=== PATIENT | male | born 1950 | race African-American/Black ===

== ENCOUNTER 2021-04-23 11:00 | Inpatient (IN) | payer OTHER ==
[~2021-04-23] VITALS: Ht 172.7 cm; Wt 84.1 kg
[2021-04-23] MEDS ORDERED: PIPERACILLIN/TAZO 3.375 GM/D5W 50 ML IV ONE (11:23)
[2021-04-23] MEDS ORDERED: MORPHINE SULFATE 4 MG/ML SYRINGE IVP PRN (11:30)
[2021-04-23] MEDS ORDERED: ONDANSETRON HCL 4 MG/2 ML VIAL IVP PRN ×2 (11:30→12:15)
[2021-04-23] MEDS ORDERED: VANCOMYCIN HCL 1 GM/D5% WATER 200 ML IV ONE (11:30)
[2021-04-23 11:40] LABS: COVID AG,FIA SOURCE NASOPHARYNGEAL
[2021-04-23 11:43] LABS: BASOPHILS % (AUTO) 1.7 % (0.0-2.0); EOSINOPHILS % (AUTO) 6.1 % (1.0-6.0); HEMATOCRIT 33.6 % (41-53); HEMOGLOBIN 10.9 g/dL (13.5-17.5); LYMPHOCYTES # (AUTO) 1.4 K/uL (1.0-4.8); LYMPHOCYTES % (AUTO) 27.9 % (22.0-44.0); MEAN CORPUSCULAR HEMOGLOBIN 31.3 pg (26.0-34.0); MEAN CORPUSCULAR HGB CONC 32.5 G/dL (31.0-37.0); MEAN CORPUSCULAR VOLUME 96 fL (80-100); MONOCYTES # (AUTO) 0.8 K/uL (0.1-1.0); MONOCYTES % (AUTO) 14.8 % (2.0-9.0); NEUTROPHILS # (AUTO) 2.5 K/uL (1.8-7.7); NEUTROPHILS % (AUTO) 49.5 % (40.0-70.0); PLATELET COUNT (AUTO) 287 K/uL (150-450); RED BLOOD CELL COUNT(AUTO) 3.49 MIL/uL (4.50-5.90); RED CELL DISTRIBUTION WIDTH 16.2 % (11.5-14.5)
[2021-04-23 11:53] LABS: ANION GAP 7 mmol/L (8-16); CALCIUM, TOTAL 8.8 mg/dL (8.8-10.5); CARBON DIOXIDE 27 mmol/L (22-29); CHLORIDE 105 mmol/L (98-107); CREATININE 1.03 mg/dL (0.60-1.30); GLUCOSE,RANDOM 164 mg/dL (70-110); POTASSIUM 4.1 mmol/L (3.5-5.1); SODIUM SERUM 139 mmol/L (136-145); UREA NITROGEN, BLOOD 9 mg/dL (7-18)
[2021-04-23 11:54] LABS: GLOMERULAR FILTR. RATE CALC > 60 mL/min (>60)
[2021-04-23 11:58] LABS: ALANINE AMINOTRANSFERASE 25 U/L (12-78); ALBUMIN 3.2 g/dL (3.4-5.0); ALKALINE PHOSPHATASE 97 U/L (46-116); ASPARTATE AMINOTRANSFERASE 19 U/L (15-37); BILIRUBIN,TOTAL 0.2 mg/dL (0.1-1.0); C-REACTIVE PROTEIN QUANT 0.78 mg/dL (0.00-0.30); TOTAL PROTEIN, SERUM 7.7 g/dL (6.4-8.2)
[2021-04-23] MEDS ORDERED: PROPOFOL 1% 20 ML VIAL IVP ONE (12:00)
[2021-04-23] MEDS ORDERED: MIDAZOLAM HCL 2 MG/2 ML VIAL IVP ONE (12:00)
[2021-04-23] MEDS ORDERED: METOPROLOL TARTRATE 5 MG/5 ML VIAL IVP ONE (12:00)
[2021-04-23] MEDS ORDERED: FentaNYL CITRATE PF 100 MCG/2 ML VIAL IVP ONE (12:00)
[2021-04-23 12:02] LABS: LACTIC ACID 1.5 mmol/L (0.4-2.0)
[2021-04-23] MEDS ORDERED: BISACODYL 10 MG RECTAL RECTAL SUPPOSITORY PR PRN (12:15)
[2021-04-23] MEDS ORDERED: ACETAMINOPHEN 325 MG TABLET PO PRN (12:15)
[2021-04-23] MEDS ORDERED: ALBUTEROL SULFATE 2.5 MG/0.5 ML NEB SOLUTION NEB PRN (12:15)
[2021-04-23] MEDS ORDERED: DOCUSATE SODIUM 100 MG CAPSULE PO PRN (12:15)
[2021-04-23] MEDS ORDERED: IPRATROPIUM BROMIDE 0.5 MG/2.5 ML NEB SOLUTION NEB PRN (12:15)
[2021-04-23] MEDS ORDERED: 0.9% SODIUM CHLORIDE 10 ML SYRINGE IVP PRN (12:15)
[2021-04-23] MEDS ORDERED: MAGNESIUM HYDROXIDE SUSPENSION 30 ML UDCUP PO PRN (12:15)
[2021-04-23 12:20] LABS: APPEARANCE,URINE CLEAR (CLEAR); BILIRUBIN,URINE NEGATIVE (NEGATIVE); GLUCOSE, URINE (UA) NEGATIVE (NEGATIVE); KETONES,URINE NEGATIVE (NEGATIVE); LEUKOCYTE ESTERASE ,URINE NEGATIVE (NEGATIVE); NITRATE,URINE NEGATIVE (NEGATIVE); OCCULT BLOOD,URINE NEGATIVE (NEGATIVE); PH,URINE 6.5 (5.0-8.0); PROTEIN,URINE NEGATIVE (NEGATIVE); UROBILINOGEN,URINE 0.2 mg/dL (<=1.0)
[2021-04-23 12:22] LABS: BACTERIA,URINE None Seen /HPF (None Seen); RBC,URINE None Seen /HPF (0-2); WBC,URINE None Seen /HPF (0-5)
[2021-04-23] MEDS ORDERED: POVIDONE-IODINE 10% 15 ML SOLUTION UD ONE (12:26)
[2021-04-23] MEDS ORDERED: TraMADol HCL 50 MG TABLET PO PRN (12:30)
[2021-04-23] MEDS ORDERED: HydrALAZINE HCL 20 MG/ML VIAL IVP PRN (12:30)
[2021-04-23] MEDS ORDERED: DEXTROSE 50%-WATER 25 GM/50 ML SYRINGE IVP PRN (12:30)
[2021-04-23 12:53] LABS: ERYTHROCYTE SEDIMENTATION RATE 58 MM/HR (0-15)
[2021-04-23] MEDS: PANTOPRAZOLE SODIUM 40 MG DR TABLET PO SCH (14:38)
[2021-04-23] MEDS: MORPHINE SULFATE 2 MG/ML SYRINGE IVP PRN ×2 (15:13→21:31)
[2021-04-23] MEDS: HEPARIN SODIUM,PORCINE 5,000 UNITS/ML VIAL SQ SCH (15:16)
[2021-04-23 15:22] VITALS: BP 138/69
[2021-04-23] MEDS ORDERED: RINGERS SOLUTION,LACTATED 1,000 ML IV ONE (15:43)
[2021-04-23] MEDS ORDERED: LIDOCAINE/PF 1% 30 ML VIAL ONE (15:53)
[2021-04-23] MEDS ORDERED: SODIUM CL IRRIG SOLN BAG 3,000 ML IRRIG ONE (15:53)
[2021-04-23] MEDS ORDERED: BUPIVACAINE HCL/PF 0.25% 30 ML VIAL ONE (15:53)
[2021-04-23] MEDS ORDERED: SODIUM CHLORIDE 0.9% 250 ML IV ONE (16:15)
[2021-04-23] MEDS ORDERED: HYDROmorphone 2 MG/ML VIAL IVP PRN (16:30)
[2021-04-23] MEDS ORDERED: FentaNYL CITRATE PF 100 MCG/2 ML VIAL IVP PRN (16:30)
[2021-04-23] MEDS: PIPERACILLIN/TAZO 3.375 GM/D5W 50 ML IV SCH (17:51)
[2021-04-23 19:45] VITALS: BP 133/72
[2021-04-23] MEDS: VANCOMYCIN HCL 750 MG in DEXTROSE 5%-WATER 250 ML IV SCH (19:58)
[2021-04-23] MEDS: OXYGEN THERAPY IH SCH (20:00)
[2021-04-23 20:26] LABS: GLUCOMETER DEV NAME(LOC) 6S.1; GLUCOSE,POINT OF CARE 121 MG/DL (70-110)
[2021-04-23 22:28] LABS: GLUCOMETER DEV NAME(LOC) 6N.1; GLUCOSE,POINT OF CARE 172 MG/DL (70-110)
[2021-04-24] MEDS: PIPERACILLIN/TAZO 3.375 GM/D5W 50 ML IV SCH ×5 (00:08→23:49)
[2021-04-24] MEDS: HEPARIN SODIUM,PORCINE 5,000 UNITS/ML VIAL SQ SCH ×4 (00:10→23:49)
[2021-04-24] MEDS ORDERED: MORPHINE SULFATE 2 MG/ML SYRINGE IVP PRN ×2 (00:15→12:15)
[2021-04-24 00:23] VITALS: BP 148/65
[2021-04-24] MEDS: MORPHINE SULFATE 4 MG/ML SYRINGE IVP PRN ×3 (00:23→08:32)
[2021-04-24 03:40] VITALS: BP 153/82
[2021-04-24 07:07] LABS: BASOPHILS % (AUTO) 0.5 % (0.0-2.0); EOSINOPHILS % (AUTO) 5.7 % (1.0-6.0); HEMATOCRIT 36.9 % (41-53); LYMPHOCYTES # (AUTO) 1.6 K/uL (1.0-4.8); LYMPHOCYTES % (AUTO) 21.9 % (22.0-44.0); MEAN CORPUSCULAR HEMOGLOBIN 31.2 pg (26.0-34.0); MEAN CORPUSCULAR HGB CONC 32.4 G/dL (31.0-37.0); MEAN CORPUSCULAR VOLUME 96 fL (80-100); MONOCYTES # (AUTO) 0.8 K/uL (0.1-1.0); MONOCYTES % (AUTO) 10.5 % (2.0-9.0); NEUTROPHILS # (AUTO) 4.5 K/uL (1.8-7.7); NEUTROPHILS % (AUTO) 61.4 % (40.0-70.0); PLATELET COUNT (AUTO) 310 K/uL (150-450); RED BLOOD CELL COUNT(AUTO) 3.83 MIL/uL (4.50-5.90); RED CELL DISTRIBUTION WIDTH 16.4 % (11.5-14.5)
[2021-04-24 07:34] LABS: ALANINE AMINOTRANSFERASE 27 U/L (12-78); ALBUMIN 3.4 g/dL (3.4-5.0); ALKALINE PHOSPHATASE 96 U/L (46-116); ANION GAP 7 mmol/L (8-16); ASPARTATE AMINOTRANSFERASE 22 U/L (15-37); BILIRUBIN,TOTAL 0.4 mg/dL (0.1-1.0); CALCIUM, TOTAL 9.4 mg/dL (8.8-10.5); CARBON DIOXIDE 29 mmol/L (22-29); CHLORIDE 103 mmol/L (98-107); CHOL/HDL RATIO 2.8 (4.2-7.3); CHOLESTEROL 91 mg/dL (131-200); CREATININE 1.12 mg/dL (0.60-1.30); GLOMERULAR FILTR. RATE CALC > 60 mL/min (>60); GLUCOSE,RANDOM 138 mg/dL (70-110); HDL CHOLESTEROL 32 mg/dL (40-60); LDL CHOL (CALC.) 38 mg/dL (0-130); POTASSIUM 4.2 mmol/L (3.5-5.1); SODIUM SERUM 139 mmol/L (136-145); TOTAL PROTEIN, SERUM 8.2 g/dL (6.4-8.2); TRIGLYCERIDES 104 mg/dL (15-150); UREA NITROGEN, BLOOD 8 mg/dL (7-18)
[2021-04-24] MEDS: OXYGEN THERAPY IH SCH ×2 (08:00→20:00)
[2021-04-24 08:12] VITALS: BP 155/80
[2021-04-24] MEDS: PANTOPRAZOLE SODIUM 40 MG DR TABLET PO SCH (08:34)
[2021-04-24] MEDS: VANCOMYCIN HCL 750 MG in DEXTROSE 5%-WATER 250 ML IV SCH ×2 (08:35→20:43)
[2021-04-24 12:03] LABS: GLUCOMETER DEV NAME(LOC) 6N.1; GLUCOSE,POINT OF CARE 134 MG/DL (70-110)
[2021-04-24 12:03] LABS: GLUCOMETER DEV NAME(LOC) 6N.1; GLUCOSE,POINT OF CARE 167 MG/DL (70-110)
[2021-04-24] MEDS: HYDROCODONE/ACETAMINOPHEN 10-325 MG TABLET PO PRN ×2 (14:21→20:53)
[2021-04-24 15:46] VITALS: BP 149/69
[2021-04-24 17:54] LABS: GLUCOMETER DEV NAME(LOC) 6S.1; GLUCOSE,POINT OF CARE 141 MG/DL (70-110)
[2021-04-24 19:47] VITALS: BP 156/76
[2021-04-24 22:16] LABS: GLUCOMETER DEV NAME(LOC) 6S.1; GLUCOSE,POINT OF CARE 157 MG/DL (70-110)
[2021-04-24] MEDS ORDERED: SODIUM CHLORIDE 0.9% 250 ML IV ONE (23:41)
[2021-04-25 03:48] VITALS: BP 120/73
[2021-04-25] MEDS: PIPERACILLIN/TAZO 3.375 GM/D5W 50 ML IV SCH ×4 (05:28→23:25)
[2021-04-25] MEDS: HYDROCODONE/ACETAMINOPHEN 10-325 MG TABLET PO PRN ×3 (05:28→19:53)
[2021-04-25 06:26] LABS: GLUCOMETER DEV NAME(LOC) 6N.1; GLUCOSE,POINT OF CARE 154 MG/DL (70-110)
[2021-04-25 07:55] LABS: ANION GAP 9 mmol/L (8-16); CALCIUM, TOTAL 9.1 mg/dL (8.8-10.5); CARBON DIOXIDE 28 mmol/L (22-29); CHLORIDE 101 mmol/L (98-107); CREATININE 1.15 mg/dL (0.60-1.30); GLUCOSE,RANDOM 150 mg/dL (70-110); POTASSIUM 3.7 mmol/L (3.5-5.1); SODIUM SERUM 138 mmol/L (136-145); UREA NITROGEN, BLOOD 12 mg/dL (7-18); VANCOMYCIN,RANDOM 10.3 mcg/mL (25.0-50.0)
[2021-04-25 07:56] LABS: GLOMERULAR FILTR. RATE CALC > 60 mL/min (>60)
[2021-04-25] MEDS: OXYGEN THERAPY IH SCH ×2 (08:00→19:56)
[2021-04-25 08:05] VITALS: BP 132/70
[2021-04-25] MEDS: HEPARIN SODIUM,PORCINE 5,000 UNITS/ML VIAL SQ SCH ×3 (08:26→23:25)
[2021-04-25] MEDS: VANCOMYCIN HCL 750 MG in DEXTROSE 5%-WATER 250 ML IV SCH (08:27)
[2021-04-25] MEDS: PANTOPRAZOLE SODIUM 40 MG DR TABLET PO SCH (08:27)
[2021-04-25] MEDS: INSULIN LISPRO 100 UNITS/ML SQ PRN ×2 (11:16→17:05)
[2021-04-25 15:51] LABS: GLUCOMETER DEV NAME(LOC) 6S.1; GLUCOSE,POINT OF CARE 145 MG/DL (70-110)
[2021-04-25 15:58] VITALS: BP 137/68
[2021-04-25 18:34] LABS: GLUCOMETER DEV NAME(LOC) 6N.1; GLUCOSE,POINT OF CARE 147 MG/DL (70-110)
[2021-04-25] MEDS: VANCOMYCIN HCL 1 GM/D5% WATER 200 ML IV SCH (19:53)
[2021-04-25 20:05] VITALS: BP 133/54
[2021-04-25 21:04] LABS: GLUCOMETER DEV NAME(LOC) 6S.1; GLUCOSE,POINT OF CARE 136 MG/DL (70-110)
[2021-04-26] MEDS: HYDROCODONE/ACETAMINOPHEN 10-325 MG TABLET PO PRN ×3 (02:24→14:37)
[2021-04-26 04:15] VITALS: BP 117/54
[2021-04-26] MEDS: PIPERACILLIN/TAZO 3.375 GM/D5W 50 ML IV SCH ×2 (06:12→12:25)
[2021-04-26 07:07] LABS: ANION GAP 8 mmol/L (8-16); CALCIUM, TOTAL 8.9 mg/dL (8.8-10.5); CARBON DIOXIDE 28 mmol/L (22-29); CHLORIDE 102 mmol/L (98-107); CREATININE 1.13 mg/dL (0.60-1.30); GLUCOSE,RANDOM 134 mg/dL (70-110); POTASSIUM 3.8 mmol/L (3.5-5.1); SODIUM SERUM 138 mmol/L (136-145); UREA NITROGEN, BLOOD 10 mg/dL (7-18)
[2021-04-26 07:11] LABS: GLOMERULAR FILTR. RATE CALC > 60 mL/min (>60)
[2021-04-26 07:36] LABS: GLUCOMETER DEV NAME(LOC) 6S.1; GLUCOSE,POINT OF CARE 155 MG/DL (70-110)
[2021-04-26 07:59] VITALS: BP 124/63
[2021-04-26] MEDS: OXYGEN THERAPY IH SCH (08:00)
[2021-04-26] MEDS: VANCOMYCIN HCL 1 GM/D5% WATER 200 ML IV SCH (08:11)
[2021-04-26] MEDS: PANTOPRAZOLE SODIUM 40 MG DR TABLET PO SCH (08:11)
[2021-04-26] MEDS: HEPARIN SODIUM,PORCINE 5,000 UNITS/ML VIAL SQ SCH (08:12)
[2021-04-26] MEDS ORDERED: SODIUM CHLORIDE 0.9% 500 ML IV ONE (08:37)
[2021-04-26] MEDS: INSULIN LISPRO 100 UNITS/ML SQ PRN (12:25)
[2021-04-26 14:04] LABS: GLUCOMETER DEV NAME(LOC) 6S.1; GLUCOSE,POINT OF CARE 139 MG/DL (70-110)
[2021-04-26] MEDS ORDERED: CEPH500C3 PO (15:49)
[2021-04-26 16:14] VITALS: BP 140/74
== END 2021-04-26 17:10 | disposition home health service (06) | DRG 256 ==
LOC: EMS 11:07 → 6N 13:08
PROVIDERS: ADMIT Internal Medicine; ATTEND Internal Medicine
PROC: 0Y6Q0Z1 Detachment at Left 1st Toe, High, Open Approach (ICD-10-PCS; principal; 2021-04-25)
PROC: 0QBR0ZX Excision of Left Toe Phalanx, Open Approach, Diagnostic (ICD-10-PCS; 2021-04-25)
DX: E11.52 Type 2 diabetes mellitus with diabetic peripheral angiopathy with gangrene (principal); M86.8X7 Other osteomyelitis, ankle and foot; I11.9 Hypertensive heart disease without heart failure; D63.8 Anemia in other chronic diseases classified elsewhere; E78.5 Hyperlipidemia, unspecified; J43.9 Emphysema, unspecified; E11.69 Type 2 diabetes mellitus with other specified complication; J45.909 Unspecified asthma, uncomplicated; Z87.891 Personal history of nicotine dependence; Z88.2 Allergy status to sulfonamides
CPT/HCPCS: 71045; 80048; 80053; 80061; 80202; 81001; 82962; 83605; 84145; 84484; 85025; 85651; 86140; 87040; 87070; 87077; 87205; 88305; 88307; 88311; 93005; 97162; 99285; J1644; J2250; J2270; J2405; J2543; J2704; J3010; J3370; J3490; J7040; J7050; J7060; J7120; 36415-L1; 36415-TC; Z7610

== ENCOUNTER 2021-08-06 07:24 | Inpatient (IN) | payer OTHER ==
[~2021-08-06] VITALS: Ht 172.7 cm; Wt 87.3 kg
[~2021-08-06 07:24] MED LIST: CEPH500C3 PO
[2021-08-06] MEDS ORDERED: MONT-35 PO (07:31)
[2021-08-06] MEDS ORDERED: HYDR25TA2 PO (07:31)
[2021-08-06] MEDS ORDERED: FLUT1BLS8 IH (07:31)
[2021-08-06] MEDS ORDERED: ATOR40TA28 PO (07:31)
[2021-08-06] MEDS ORDERED: OMEP20 PO (07:31)
[2021-08-06] MEDS ORDERED: SILD25 PO (07:31)
[2021-08-06] MEDS ORDERED: LOSA-382 PO (07:31)
[2021-08-06] MEDS ORDERED: CAPS60CR3 TP (07:31)
[2021-08-06] MEDS ORDERED: ASPI-1450 PO (07:31)
[2021-08-06] MEDS ORDERED: FERR-89 PO (07:31)
[2021-08-06] MEDS ORDERED: INSLAN SQ (07:31)
[2021-08-06] MEDS ORDERED: GABA-1201 PO (07:31)
[2021-08-06 08:42] LABS: ANION GAP 10 mmol/L (8-16); CALCIUM, TOTAL 9.2 mg/dL (8.8-10.5); CARBON DIOXIDE 24 mmol/L (22-29); CHLORIDE 104 mmol/L (98-107); CREATININE 1.11 mg/dL (0.60-1.30); GLUCOSE,RANDOM 166 mg/dL (70-110); POTASSIUM 3.5 mmol/L (3.5-5.1); SODIUM SERUM 138 mmol/L (136-145); UREA NITROGEN, BLOOD 11 mg/dL (7-18)
[2021-08-06 08:45] LABS: EOSINOPHILS % (AUTO) 5.7 % (1.0-6.0); HEMATOCRIT 41.3 % (41-53); LYMPHOCYTES # (AUTO) 1.7 K/uL (1.0-4.8); LYMPHOCYTES % (AUTO) 23.6 % (22.0-44.0); MEAN CORPUSCULAR HEMOGLOBIN 31.6 pg (26.0-34.0); MEAN CORPUSCULAR VOLUME 93 fL (80-100); MONOCYTES # (AUTO) 0.6 K/uL (0.1-1.0); NEUTROPHILS # (AUTO) 4.4 K/uL (1.8-7.7); NEUTROPHILS % (AUTO) 61.7 % (40.0-70.0); PLATELET COUNT (AUTO) 234 K/uL (150-450); RED BLOOD CELL COUNT(AUTO) 4.44 MIL/uL (4.50-5.90); RED CELL DISTRIBUTION WIDTH 14.8 % (11.5-14.5)
[2021-08-06 08:48] LABS: ALANINE AMINOTRANSFERASE 24 U/L (12-78); ALBUMIN 3.4 g/dL (3.4-5.0); ALKALINE PHOSPHATASE 107 U/L (46-116); ASPARTATE AMINOTRANSFERASE 13 U/L (15-37); BILIRUBIN,TOTAL 0.2 mg/dL (0.1-1.0); C-REACTIVE PROTEIN QUANT 4.51 mg/dL (0.00-0.30); TOTAL PROTEIN, SERUM 8.1 g/dL (6.4-8.2)
[2021-08-06 09:02] LABS: GLOMERULAR FILTR. RATE CALC > 60 mL/min (>60)
[2021-08-06 09:06] LABS: PROTHROMBIN TIME 10.9 SEC (9.4-11.6)
[2021-08-06] MEDS ORDERED: RINGERS SOLUTION,LACTATED 1,000 ML IV ONE ×2 (09:45→10:10)
[2021-08-06] MEDS ORDERED: GADOTERATE MEGLUMINE 10 MMOL/20 ML VIAL IVP ONE (10:06)
[2021-08-06 10:27] LABS: ERYTHROCYTE SEDIMENTATION RATE 26 MM/HR (0-15)
[2021-08-06 12:28] LABS: COVID AG,FIA SOURCE NASAL SWAB
[2021-08-06 12:39] LABS: INR 1.1 (0.9-1.1); PROTHROMBIN TIME 11.8 SEC (9.4-11.6)
[2021-08-06] MEDS ORDERED: ONDANSETRON HCL 4 MG/2 ML VIAL IVP PRN (13:15)
[2021-08-06] MEDS ORDERED: MAGNESIUM HYDROXIDE SUSPENSION 30 ML UDCUP PO PRN (13:15)
[2021-08-06] MEDS ORDERED: ZOLPIDEM TARTRATE 5 MG TABLET PO PRN (13:15)
[2021-08-06] MEDS ORDERED: BISACODYL 10 MG RECTAL RECTAL SUPPOSITORY PR PRN (13:15)
[2021-08-06] MEDS ORDERED: VANCOMYCIN HCL 1.5 GM in DEXTROSE 5%-WATER 250 ML IV ONE (13:30)
[2021-08-06] MEDS ORDERED: SILDENAFIL CITRATE 25 MG TABLET PO SCH (13:30)
[2021-08-06] MEDS ORDERED: DEXTROSE 50%-WATER 25 GM/50 ML SYRINGE IVP PRN (13:30)
[2021-08-06] MEDS: HEPARIN SODIUM,PORCINE 5,000 UNITS/ML VIAL SQ SCH ×2 (15:10→23:29)
[2021-08-06] MEDS: GABAPENTIN 400 MG CAPSULE PO SCH ×2 (16:16→20:25)
[2021-08-06] MEDS: FERROUS SULFATE 325 MG EC TABLET PO SCH (17:04)
[2021-08-06 20:00] VITALS: BP 149/85
[2021-08-06] MEDS: MONTELUKAST SODIUM 10 MG TABLET PO SCH (20:25)
[2021-08-06] MEDS: DOCUSATE SODIUM 100 MG CAPSULE PO SCH (20:25)
[2021-08-06] MEDS: VANCOMYCIN HCL 1 GM/D5% WATER 200 ML IV SCH (20:25)
[2021-08-06] MEDS: ATORVASTATIN CALCIUM 40 MG TABLET PO SCH (20:25)
[2021-08-06] MEDS: INSULIN GLARGINE,HUM.REC.ANLOG 100 UNITS/ML SQ SCH (21:00)
[2021-08-07 05:12] VITALS: BP 149/90
[2021-08-07] MEDS ORDERED: RINGERS SOLUTION,LACTATED 1,000 ML IV ONE ×3 (05:26→06:45)
[2021-08-07 06:43] LABS: BASOPHILS % (AUTO) 0.8 % (0.0-2.0); EOSINOPHILS % (AUTO) 6.7 % (1.0-6.0); HEMOGLOBIN 15.7 g/dL (13.5-17.5); LYMPHOCYTES # (AUTO) 2.7 K/uL (1.0-4.8); LYMPHOCYTES % (AUTO) 36.6 % (22.0-44.0); MEAN CORPUSCULAR HEMOGLOBIN 31.6 pg (26.0-34.0); MEAN CORPUSCULAR HGB CONC 34.1 G/dL (31.0-37.0); MEAN CORPUSCULAR VOLUME 93 fL (80-100); MONOCYTES # (AUTO) 0.7 K/uL (0.1-1.0); NEUTROPHILS # (AUTO) 3.3 K/uL (1.8-7.7); NEUTROPHILS % (AUTO) 45.9 % (40.0-70.0); PLATELET COUNT (AUTO) 261 K/uL (150-450); RED BLOOD CELL COUNT(AUTO) 4.96 MIL/uL (4.50-5.90); RED CELL DISTRIBUTION WIDTH 15.5 % (11.5-14.5)
[2021-08-07 06:52] LABS: ANION GAP 8 mmol/L (8-16); CALCIUM, TOTAL 9.8 mg/dL (8.8-10.5); CARBON DIOXIDE 29 mmol/L (22-29); CHLORIDE 103 mmol/L (98-107); CREATININE 1.15 mg/dL (0.60-1.30); GLUCOSE,RANDOM 173 mg/dL (70-110); POTASSIUM 4.6 mmol/L (3.5-5.1); SODIUM SERUM 140 mmol/L (136-145); UREA NITROGEN, BLOOD 9 mg/dL (7-18)
[2021-08-07 06:57] LABS: GLOMERULAR FILTR. RATE CALC > 60 mL/min (>60)
[2021-08-07] MEDS ORDERED: BUPIVACAINE HCL/PF 0.25% 30 ML VIAL ONE (06:59)
[2021-08-07] MEDS ORDERED: VANCOMYCIN HCL 500 MG/VIAL ONE (06:59)
[2021-08-07] MEDS ORDERED: LIDOCAINE 1%/EPI 1:200,000/PF 30 ML VIAL ONE (06:59)
[2021-08-07] MEDS: HEPARIN SODIUM,PORCINE 5,000 UNITS/ML VIAL SQ SCH ×3 (08:00→23:37)
[2021-08-07] MEDS ORDERED: PANTOPRAZOLE SODIUM 40 MG DR TABLET PO SCH (09:00)
[2021-08-07 09:46] VITALS: BP 148/81
[2021-08-07] MEDS: ASPIRIN 81 MG CHEWABLE TABLET PO SCH (10:48)
[2021-08-07] MEDS: OMEPRAZOLE 20 MG CAPSULE PO SCH (10:48)
[2021-08-07] MEDS: HYDROCHLOROTHIAZIDE 25 MG TABLET PO SCH (10:48)
[2021-08-07] MEDS: FERROUS SULFATE 325 MG EC TABLET PO SCH ×2 (10:49→18:15)
[2021-08-07] MEDS: LOSARTAN POTASSIUM 50 MG TABLET PO SCH (10:49)
[2021-08-07] MEDS: GABAPENTIN 400 MG CAPSULE PO SCH ×3 (10:49→20:08)
[2021-08-07] MEDS: DOCUSATE SODIUM 100 MG CAPSULE PO SCH ×2 (10:49→20:08)
[2021-08-07] MEDS: VANCOMYCIN HCL 1 GM/D5% WATER 200 ML IV SCH ×2 (10:53→19:55)
[2021-08-07] MEDS ORDERED: PROPOFOL 1% 20 ML VIAL IVP ONE (12:00)
[2021-08-07] MEDS ORDERED: MIDAZOLAM HCL 2 MG/2 ML VIAL IVP ONE (12:00)
[2021-08-07] MEDS ORDERED: FentaNYL CITRATE PF 100 MCG/2 ML VIAL IVP ONE (12:00)
[2021-08-07] MEDS ORDERED: ESMOLOL HCL 10 MG/ML 10 ML VIAL IVP ONE (12:00)
[2021-08-07] MEDS ORDERED: LIDOCAINE/PF 2% 5 ML SYRINGE IVP ONE (12:00)
[2021-08-07 15:26] VITALS: BP 141/64
[2021-08-07] MEDS: MORPHINE SULFATE 2 MG/ML SYRINGE IVP PRN ×2 (16:10→20:08)
[2021-08-07] MEDS: HYDROCODONE/ACETAMINOPHEN 5-325 MG TABLET PO PRN ×2 (18:19→23:37)
[2021-08-07] MEDS: MONTELUKAST SODIUM 10 MG TABLET PO SCH (20:08)
[2021-08-07] MEDS: ATORVASTATIN CALCIUM 40 MG TABLET PO SCH (20:08)
[2021-08-07] MEDS: INSULIN GLARGINE,HUM.REC.ANLOG 100 UNITS/ML SQ SCH (20:09)
[2021-08-07 20:46] VITALS: BP 144/67
[2021-08-08] MEDS: MORPHINE SULFATE 2 MG/ML SYRINGE IVP PRN ×2 (01:23→06:52)
[2021-08-08 05:24] VITALS: BP 138/73
[2021-08-08 08:23] VITALS: BP 147/81
[2021-08-08] MEDS: LOSARTAN POTASSIUM 50 MG TABLET PO SCH (08:53)
[2021-08-08] MEDS: GABAPENTIN 400 MG CAPSULE PO SCH ×3 (08:53→19:59)
[2021-08-08] MEDS: OMEPRAZOLE 20 MG CAPSULE PO SCH (08:53)
[2021-08-08] MEDS: HYDROCHLOROTHIAZIDE 25 MG TABLET PO SCH (08:53)
[2021-08-08] MEDS: ASPIRIN 81 MG CHEWABLE TABLET PO SCH (08:53)
[2021-08-08] MEDS: DOCUSATE SODIUM 100 MG CAPSULE PO SCH ×2 (08:53→19:59)
[2021-08-08] MEDS: HEPARIN SODIUM,PORCINE 5,000 UNITS/ML VIAL SQ SCH ×3 (08:54→23:20)
[2021-08-08] MEDS: FERROUS SULFATE 325 MG EC TABLET PO SCH ×2 (08:54→17:24)
[2021-08-08] MEDS: VANCOMYCIN HCL 1 GM/D5% WATER 200 ML IV SCH (08:55)
[2021-08-08 09:01] LABS: BASOPHILS % (AUTO) 0.8 % (0.0-2.0); EOSINOPHILS % (AUTO) 5.8 % (1.0-6.0); HEMATOCRIT 41.8 % (41-53); HEMOGLOBIN 14.3 g/dL (13.5-17.5); LYMPHOCYTES # (AUTO) 1.8 K/uL (1.0-4.8); LYMPHOCYTES % (AUTO) 27.8 % (22.0-44.0); MEAN CORPUSCULAR HEMOGLOBIN 31.4 pg (26.0-34.0); MEAN CORPUSCULAR HGB CONC 34.1 G/dL (31.0-37.0); MEAN CORPUSCULAR VOLUME 92 fL (80-100); MONOCYTES # (AUTO) 0.7 K/uL (0.1-1.0); MONOCYTES % (AUTO) 11.3 % (2.0-9.0); NEUTROPHILS # (AUTO) 3.6 K/uL (1.8-7.7); NEUTROPHILS % (AUTO) 54.3 % (40.0-70.0); PLATELET COUNT (AUTO) 215 K/uL (150-450); RED BLOOD CELL COUNT(AUTO) 4.54 MIL/uL (4.50-5.90); RED CELL DISTRIBUTION WIDTH 14.8 % (11.5-14.5)
[2021-08-08 09:27] LABS: ANION GAP 5 mmol/L (8-16); CALCIUM, TOTAL 9.5 mg/dL (8.8-10.5); CARBON DIOXIDE 30 mmol/L (22-29); CHLORIDE 102 mmol/L (98-107); CREATININE 1.06 mg/dL (0.60-1.30); GLUCOSE,RANDOM 131 mg/dL (70-110); POTASSIUM 4.5 mmol/L (3.5-5.1); SODIUM SERUM 137 mmol/L (136-145); UREA NITROGEN, BLOOD 9 mg/dL (7-18); VANCOMYCIN,RANDOM 13.5 mcg/mL (25.0-50.0)
[2021-08-08 09:33] LABS: GLOMERULAR FILTR. RATE CALC > 60 mL/min (>60)
[2021-08-08] MEDS: CefTRIAXone SODIUM 2 GM in DEXTROSE 5%-WATER 50 ML IV SCH (11:14)
[2021-08-08] MEDS: HYDROCODONE/ACETAMINOPHEN 5-325 MG TABLET PO PRN ×2 (11:14→20:00)
[2021-08-08] MEDS: INSULIN LISPRO 100 UNITS/ML SQ PRN ×3 (11:54→20:14)
[2021-08-08 16:54] VITALS: BP 101/63
[2021-08-08 19:55] VITALS: BP 117/67
[2021-08-08] MEDS: ATORVASTATIN CALCIUM 40 MG TABLET PO SCH (19:59)
[2021-08-08] MEDS: VANCOMYCIN HCL 1.25 GM in DEXTROSE 5%-WATER 250 ML IV SCH (20:05)
[2021-08-08] MEDS: INSULIN GLARGINE,HUM.REC.ANLOG 100 UNITS/ML SQ SCH (20:14)
[2021-08-08] MEDS: MONTELUKAST SODIUM 10 MG TABLET PO SCH (23:20)
[2021-08-09 05:15] VITALS: BP 109/65
[2021-08-09] MEDS: HYDROCODONE/ACETAMINOPHEN 5-325 MG TABLET PO PRN ×3 (05:32→23:21)
[2021-08-09 06:45] LABS: EOSINOPHILS % (AUTO) 6.6 % (1.0-6.0); HEMATOCRIT 41.5 % (41-53); HEMOGLOBIN 14.5 g/dL (13.5-17.5); LYMPHOCYTES # (AUTO) 2.1 K/uL (1.0-4.8); LYMPHOCYTES % (AUTO) 34.1 % (22.0-44.0); MEAN CORPUSCULAR HEMOGLOBIN 32.1 pg (26.0-34.0); MEAN CORPUSCULAR HGB CONC 35.1 G/dL (31.0-37.0); MEAN CORPUSCULAR VOLUME 92 fL (80-100); MONOCYTES # (AUTO) 0.8 K/uL (0.1-1.0); MONOCYTES % (AUTO) 12.7 % (2.0-9.0); NEUTROPHILS # (AUTO) 2.8 K/uL (1.8-7.7); NEUTROPHILS % (AUTO) 45.6 % (40.0-70.0); PLATELET COUNT (AUTO) 252 K/uL (150-450); RED BLOOD CELL COUNT(AUTO) 4.53 MIL/uL (4.50-5.90); RED CELL DISTRIBUTION WIDTH 14.7 % (11.5-14.5)
[2021-08-09 07:01] LABS: ANION GAP 7 mmol/L (8-16); CALCIUM, TOTAL 9.7 mg/dL (8.8-10.5); CARBON DIOXIDE 30 mmol/L (22-29); CHLORIDE 97 mmol/L (98-107); CREATININE 1.18 mg/dL (0.60-1.30); GLUCOSE,RANDOM 176 mg/dL (70-110); SODIUM SERUM 134 mmol/L (136-145); UREA NITROGEN, BLOOD 14 mg/dL (7-18)
[2021-08-09 07:02] LABS: GLOMERULAR FILTR. RATE CALC > 60 mL/min (>60)
[2021-08-09] MEDS ORDERED: SODIUM CHLORIDE 0.9% 250 ML IV ONE (07:53)
[2021-08-09] MEDS: VANCOMYCIN HCL 1.25 GM in DEXTROSE 5%-WATER 250 ML IV SCH ×2 (08:01→20:12)
[2021-08-09] MEDS: HEPARIN SODIUM,PORCINE 5,000 UNITS/ML VIAL SQ SCH ×3 (08:01→23:18)
[2021-08-09] MEDS: GABAPENTIN 400 MG CAPSULE PO SCH ×3 (08:02→20:20)
[2021-08-09] MEDS: ASPIRIN 81 MG CHEWABLE TABLET PO SCH (08:02)
[2021-08-09] MEDS: OMEPRAZOLE 20 MG CAPSULE PO SCH (08:02)
[2021-08-09] MEDS: LOSARTAN POTASSIUM 50 MG TABLET PO SCH (08:03)
[2021-08-09] MEDS: HYDROCHLOROTHIAZIDE 25 MG TABLET PO SCH (08:03)
[2021-08-09] MEDS: FERROUS SULFATE 325 MG EC TABLET PO SCH ×2 (08:03→17:58)
[2021-08-09] MEDS: DOCUSATE SODIUM 100 MG CAPSULE PO SCH ×2 (08:03→20:11)
[2021-08-09] MEDS: CefTRIAXone SODIUM 2 GM in DEXTROSE 5%-WATER 50 ML IV SCH (10:43)
[2021-08-09] MEDS: MONTELUKAST SODIUM 10 MG TABLET PO SCH (20:11)
[2021-08-09] MEDS: ATORVASTATIN CALCIUM 40 MG TABLET PO SCH (20:12)
[2021-08-09] MEDS: INSULIN GLARGINE,HUM.REC.ANLOG 100 UNITS/ML SQ SCH (20:20)
[2021-08-09] MEDS: INSULIN LISPRO 100 UNITS/ML SQ PRN (20:21)
[2021-08-10] MEDS: HYDROCODONE/ACETAMINOPHEN 5-325 MG TABLET PO PRN ×2 (07:55→18:04)
[2021-08-10] MEDS: HEPARIN SODIUM,PORCINE 5,000 UNITS/ML VIAL SQ SCH ×3 (08:00→23:56)
[2021-08-10 08:03] VITALS: BP 147/75
[2021-08-10 08:55] VITALS: BP 146/80
[2021-08-10] MEDS: ACETAMINOPHEN 325 MG TABLET PO PRN ×2 (08:55→14:05)
[2021-08-10] MEDS: HYDROCHLOROTHIAZIDE 25 MG TABLET PO SCH ×2 (09:00→09:13)
[2021-08-10] MEDS: GABAPENTIN 400 MG CAPSULE PO SCH ×3 (09:13→19:53)
[2021-08-10] MEDS: VANCOMYCIN HCL 1.25 GM in DEXTROSE 5%-WATER 250 ML IV SCH (09:13)
[2021-08-10] MEDS: ASPIRIN 81 MG CHEWABLE TABLET PO SCH (09:13)
[2021-08-10] MEDS: FERROUS SULFATE 325 MG EC TABLET PO SCH ×2 (09:13→18:04)
[2021-08-10] MEDS: OMEPRAZOLE 20 MG CAPSULE PO SCH (09:14)
[2021-08-10] MEDS: DOCUSATE SODIUM 100 MG CAPSULE PO SCH ×3 (09:14→19:53)
[2021-08-10] MEDS: LOSARTAN POTASSIUM 50 MG TABLET PO SCH (09:14)
[2021-08-10 09:15] LABS: ANION GAP 6 mmol/L (8-16); CALCIUM, TOTAL 9.5 mg/dL (8.8-10.5); CARBON DIOXIDE 28 mmol/L (22-29); CHLORIDE 97 mmol/L (98-107); CREATININE 1.17 mg/dL (0.60-1.30); GLUCOSE,RANDOM 233 mg/dL (70-110); POTASSIUM 4.1 mmol/L (3.5-5.1); SODIUM SERUM 131 mmol/L (136-145); UREA NITROGEN, BLOOD 13 mg/dL (7-18); VANCOMYCIN,RANDOM 16.5 mcg/mL (25.0-50.0)
[2021-08-10 09:16] LABS: GLOMERULAR FILTR. RATE CALC > 60 mL/min (>60)
[2021-08-10 12:20] LABS: APPEARANCE,URINE CLEAR (CLEAR); BILIRUBIN,URINE NEGATIVE (NEGATIVE); GLUCOSE, URINE (UA) NEGATIVE (NEGATIVE); KETONES,URINE NEGATIVE (NEGATIVE); LEUKOCYTE ESTERASE ,URINE NEGATIVE (NEGATIVE); NITRATE,URINE NEGATIVE (NEGATIVE); OCCULT BLOOD,URINE NEGATIVE (NEGATIVE); PROTEIN,URINE NEGATIVE (NEGATIVE); UROBILINOGEN,URINE 0.2 mg/dL (<=1.0)
[2021-08-10 12:29] LABS: BACTERIA,URINE None Seen /HPF (None Seen); RBC,URINE None Seen /HPF (0-2); WBC,URINE None Seen /HPF (0-5)
[2021-08-10] MEDS: CefTRIAXone SODIUM 2 GM in DEXTROSE 5%-WATER 50 ML IV SCH ×2 (13:40→14:14)
[2021-08-10 14:03] VITALS: BP 135/61
[2021-08-10 15:44] LABS: COVID AG,FIA SOURCE NASAL SWAB
[2021-08-10] MEDS: ATORVASTATIN CALCIUM 40 MG TABLET PO SCH ×2 (19:50→19:53)
[2021-08-10] MEDS: MONTELUKAST SODIUM 10 MG TABLET PO SCH (19:54)
[2021-08-10] MEDS: INSULIN GLARGINE,HUM.REC.ANLOG 100 UNITS/ML SQ SCH (19:54)
[2021-08-10 20:45] VITALS: BP 140/69
[2021-08-10] MEDS: INSULIN LISPRO 100 UNITS/ML SQ PRN (22:51)
[2021-08-11 05:15] VITALS: BP 150/78
[2021-08-11] MEDS: HYDROCODONE/ACETAMINOPHEN 5-325 MG TABLET PO PRN ×3 (05:22→21:27)
[2021-08-11] MEDS: INSULIN LISPRO 100 UNITS/ML SQ PRN (06:21)
[2021-08-11 07:55] VITALS: BP 126/67
[2021-08-11] MEDS: ACETAMINOPHEN 325 MG TABLET PO PRN ×2 (08:38→16:08)
[2021-08-11] MEDS: LOSARTAN POTASSIUM 50 MG TABLET PO SCH (08:38)
[2021-08-11] MEDS: HEPARIN SODIUM,PORCINE 5,000 UNITS/ML VIAL SQ SCH ×2 (08:38→16:08)
[2021-08-11] MEDS: FERROUS SULFATE 325 MG EC TABLET PO SCH ×2 (08:38→17:57)
[2021-08-11] MEDS: GABAPENTIN 400 MG CAPSULE PO SCH ×4 (08:39→21:00)
[2021-08-11] MEDS: ASPIRIN 81 MG CHEWABLE TABLET PO SCH (08:39)
[2021-08-11] MEDS: DOCUSATE SODIUM 100 MG CAPSULE PO SCH ×2 (08:39→21:24)
[2021-08-11] MEDS: HYDROCHLOROTHIAZIDE 25 MG TABLET PO SCH (08:41)
[2021-08-11] MEDS: OMEPRAZOLE 20 MG CAPSULE PO SCH (08:43)
[2021-08-11] MEDS: CefTRIAXone SODIUM 2 GM in DEXTROSE 5%-WATER 50 ML IV SCH (10:19)
[2021-08-11 15:53] VITALS: BP 139/74
[2021-08-11 19:51] VITALS: BP 144/74
[2021-08-11] MEDS: INSULIN GLARGINE,HUM.REC.ANLOG 100 UNITS/ML SQ SCH (21:00)
[2021-08-11] MEDS: ATORVASTATIN CALCIUM 40 MG TABLET PO SCH (21:24)
[2021-08-11] MEDS: MONTELUKAST SODIUM 10 MG TABLET PO SCH (21:24)
[2021-08-12 04:17] VITALS: BP 136/78
[2021-08-12 08:00] VITALS: BP 143/72
[2021-08-12] MEDS: OMEPRAZOLE 20 MG CAPSULE PO SCH (08:25)
[2021-08-12] MEDS: LOSARTAN POTASSIUM 50 MG TABLET PO SCH (08:25)
[2021-08-12] MEDS: GABAPENTIN 400 MG CAPSULE PO SCH ×4 (08:25→21:00)
[2021-08-12] MEDS: DOCUSATE SODIUM 100 MG CAPSULE PO SCH ×2 (08:25→21:16)
[2021-08-12] MEDS: FERROUS SULFATE 325 MG EC TABLET PO SCH ×2 (08:25→18:12)
[2021-08-12] MEDS: ASPIRIN 81 MG CHEWABLE TABLET PO SCH (08:26)
[2021-08-12] MEDS: HYDROCHLOROTHIAZIDE 25 MG TABLET PO SCH (08:26)
[2021-08-12] MEDS: HEPARIN SODIUM,PORCINE 5,000 UNITS/ML VIAL SQ SCH ×3 (08:26→15:42)
[2021-08-12] MEDS: HYDROCODONE/ACETAMINOPHEN 5-325 MG TABLET PO PRN ×2 (08:38→15:43)
[2021-08-12] MEDS: CefTRIAXone SODIUM 2 GM in DEXTROSE 5%-WATER 50 ML IV SCH (10:20)
[2021-08-12] MEDS ORDERED: TRULICITY 3 MG/0.5 ML SQ SCH (13:32)
[2021-08-12] MEDS ORDERED: *PATIENT'S OWN MED [ENTER DRUG, DOSE, FREQUENCY IN COMMENTS] CLINICAL SCH (14:00)
[2021-08-12 15:38] VITALS: BP 133/66
[2021-08-12 20:01] VITALS: BP 148/69
[2021-08-12] MEDS: INSULIN GLARGINE,HUM.REC.ANLOG 100 UNITS/ML SQ SCH (21:00)
[2021-08-12] MEDS: ATORVASTATIN CALCIUM 40 MG TABLET PO SCH (21:16)
[2021-08-12] MEDS: MONTELUKAST SODIUM 10 MG TABLET PO SCH (21:16)
[2021-08-13 05:25] VITALS: BP 144/72
[2021-08-13] MEDS: LOSARTAN POTASSIUM 50 MG TABLET PO SCH (08:21)
[2021-08-13] MEDS: DOCUSATE SODIUM 100 MG CAPSULE PO SCH ×2 (08:21→21:14)
[2021-08-13] MEDS: ASPIRIN 81 MG CHEWABLE TABLET PO SCH (08:21)
[2021-08-13] MEDS: HYDROCHLOROTHIAZIDE 25 MG TABLET PO SCH (08:21)
[2021-08-13] MEDS: FERROUS SULFATE 325 MG EC TABLET PO SCH ×2 (08:21→18:12)
[2021-08-13] MEDS: HEPARIN SODIUM,PORCINE 5,000 UNITS/ML VIAL SQ SCH ×3 (08:21→15:24)
[2021-08-13] MEDS: OMEPRAZOLE 20 MG CAPSULE PO SCH (08:21)
[2021-08-13] MEDS: HYDROCODONE/ACETAMINOPHEN 5-325 MG TABLET PO PRN ×2 (08:24→15:20)
[2021-08-13 08:38] VITALS: BP 167/88
[2021-08-13] MEDS: GABAPENTIN 400 MG CAPSULE PO SCH ×3 (08:57→21:00)
[2021-08-13] MEDS: CefTRIAXone SODIUM 2 GM in DEXTROSE 5%-WATER 50 ML IV SCH (10:14)
[2021-08-13 14:07] VITALS: BP 130/76
[2021-08-13 16:21] VITALS: BP 120/70
[2021-08-13 19:55] VITALS: BP 134/67
[2021-08-13] MEDS: INSULIN GLARGINE,HUM.REC.ANLOG 100 UNITS/ML SQ SCH (21:00)
[2021-08-13] MEDS: MONTELUKAST SODIUM 10 MG TABLET PO SCH (21:13)
[2021-08-13] MEDS: ATORVASTATIN CALCIUM 40 MG TABLET PO SCH (21:13)
[2021-08-14 03:40] VITALS: BP 137/72
[2021-08-14] MEDS: HEPARIN SODIUM,PORCINE 5,000 UNITS/ML VIAL SQ SCH ×2 (08:00)
[2021-08-14 08:25] VITALS: BP 172/79
[2021-08-14] MEDS: GABAPENTIN 400 MG CAPSULE PO SCH (09:00)
[2021-08-14] MEDS: OMEPRAZOLE 20 MG CAPSULE PO SCH (09:43)
[2021-08-14] MEDS: HYDROCHLOROTHIAZIDE 25 MG TABLET PO SCH (09:43)
[2021-08-14] MEDS: DOCUSATE SODIUM 100 MG CAPSULE PO SCH (09:43)
[2021-08-14] MEDS: FERROUS SULFATE 325 MG EC TABLET PO SCH (09:43)
[2021-08-14] MEDS: HYDROCODONE/ACETAMINOPHEN 5-325 MG TABLET PO PRN (09:43)
[2021-08-14] MEDS: ASPIRIN 81 MG CHEWABLE TABLET PO SCH (09:43)
[2021-08-14] MEDS: LOSARTAN POTASSIUM 50 MG TABLET PO SCH (09:43)
[2021-08-14] MEDS: CefTRIAXone SODIUM 2 GM in DEXTROSE 5%-WATER 50 ML IV SCH (10:03)
[2021-08-14] MEDS ORDERED: SODIUM CHLORIDE 0.9% 500 ML IV ONE (10:04)
== END 2021-08-14 14:00 | disposition home health service (06) | DRG 617 ==
LOC: EMS 07:26 → 6S 17:57
PROVIDERS: ADMIT Internal Medicine; ATTEND Internal Medicine
PROC: 0Y6Q0Z0 Detachment at Left 1st Toe, Complete, Open Approach (ICD-10-PCS; principal; 2021-08-06)
PROC: 0QBQ0ZX Excision of Right Toe Phalanx, Open Approach, Diagnostic (ICD-10-PCS; 2021-08-06)
DX: E11.69 Type 2 diabetes mellitus with other specified complication (principal); M86.172 Other acute osteomyelitis, left ankle and foot; M86.171 Other acute osteomyelitis, right ankle and foot; R65.10 Systemic inflammatory response syndrome (SIRS) of non-infectious origin without acute organ dysfunction; D64.9 Anemia, unspecified; E11.51 Type 2 diabetes mellitus with diabetic peripheral angiopathy without gangrene; E78.5 Hyperlipidemia, unspecified; I10 Essential (primary) hypertension; J45.909 Unspecified asthma, uncomplicated; K21.9 Gastro-esophageal reflux disease without esophagitis; R53.81 Other malaise; Z20.822 Contact with and (suspected) exposure to COVID-19; Z89.412 Acquired absence of left great toe; Z79.899 Other long term (current) drug therapy; Z88.2 Allergy status to sulfonamides
CPT/HCPCS: 36245; 36569; 71045; 73720; 76937; 80048; 80053; 80202; 81001; 83036; 85025; 85379; 85610; 85651; 86140; 87040; 87070; 87081; 88305; 88307; 88311; 93005; 99285; J0690; J0696; J1644; J1815; J2250; J2270; J2704; J3010; J3370; J3490; J7040; J7050; J7060; J7120; Q9967; 36415-L1; 36415-TC; U0003; Z7610